=== PATIENT | female | born 1985 | race Two or more races ===

== ENCOUNTER 2023-08-20 14:56 | Outpatient (CLI) | payer OTHER | END 2023-08-20 14:58 | disposition home or self-care (01) | LOC: PRENATAL 14:56 | PROVIDERS: ATTEND Obstetrics & Gynecology Maternal & Fetal Medicine | DX: O36.80X0 Pregnancy with inconclusive fetal viability, not applicable or unspecified (principal); O26.859 Spotting complicating pregnancy, unspecified trimester; O34.80 Maternal care for other abnormalities of pelvic organs, unspecified trimester; Z3A.12 12 weeks gestation of pregnancy ==